=== PATIENT | male | born 1990 | race Caucasian/White ===

== ENCOUNTER 2018-06-12 16:35 | Emergency (ER) | payer BC ==
[2018-06-12] MEDS ORDERED: GUAIFENESIN/D-METHORPHAN (200-20 MG) SYRUP 10 ML PO ONE (17:31)
[2018-06-12] MEDS ORDERED: ALBUTEROL SULFATE 0.083% NEB 2.5 MG/3 ML AMPUL NEB ONE (17:31)
--- NOTE | 2018-06-12 17:31 | ER Document Report ---
ED Medical Screen (RME) - General Chief Complaint: Shortness Of Breath Stated Complaint: ABDOMIONAL PAIN Time Seen by Provider: 06/12/18 17:28 Mode of Arrival: Ambulatory Information source: Patient Notes: Patient is a 27-year-old male who presents to the ER today for 3 months of a dry cough and approximately 1 week of right chest pain with coughing and deep breathing. He admits to shortness of breath over the last couple of weeks as well. He denies any history of asthma or COPD. He denies any fevers chills, runny nose or sinus congestion. TRAVEL OUTSIDE OF THE [place] IN LAST 30 DAYS: No - Related Data Allergies/Adverse Reactions: No Known Allergies Allergy (Unverified 06/12/18 16:36) Past Medical History - General Information source: Patient - Social History Chew tobacco use (# tins/day): No Frequency of alcohol use: None Drug Abuse: None Renal/ Medical History: Denies: Hx Peritoneal Dialysis Review of Systems - Review of Systems Constitutional: See HPI Respiratory: See HPI Physical Exam - Vital signs Vitals: Temp Pulse Resp BP Pulse Ox 98.3 F 95 16 120/83 95 06/12/18 16:41 06/12/18 16:41 06/12/18 16:41 06/12/18 16:41 06/12/18 16:41 - Notes Notes: PHYSICAL EXAMINATION: GENERAL: Mildly ill-appearing, constantly coughing, otherwise in no acute distress. LUNGS: Mild expiratory wheezes, no rales or rhonchi. HEART: Regular rate and rhythm without murmurs Course - Vital Signs Vital signs: Temp Pulse Resp BP Pulse Ox 98.3 F 95 16 120/83 95 06/12/18 16:41 06/12/18 16:41 06/12/18 16:41 06/12/18 16:41 06/12/18 16:41
--- NOTE | 2018-06-12 18:20 | RADIOLOGY REPORT (SQ) ---
EXAM DESCRIPTION: CHEST 2 VIEWS COMPLETED DATE/TIME: 06/12/2018 5:37 pm REASON FOR STUDY: 3 months of cough, right-sided chest pain. COMPARISON: None. EXAM PARAMETERS: NUMBER OF VIEWS: two views TECHNIQUE: Digital Frontal and Lateral radiographic views of the chest acquired. RADIATION DOSE: NA LIMITATIONS: none FINDINGS: LUNGS AND PLEURA: No consolidation, pneumothorax or pleural effusion. MEDIASTINUM AND HILAR STRUCTURES: No masses or contour abnormalities. HEART AND VASCULAR STRUCTURES: Heart normal size. No evidence for failure. BONES: No acute findings. HARDWARE: None in the chest. IMPRESSION: NO ACUTE RADIOGRAPHIC FINDING IN THE CHEST. TECHNICAL DOCUMENTATION: JOB ID: [id number] [employer]- All Rights Reserved Reading location - IP/workstation name: [email or web address]
--- NOTE | 2018-06-12 18:30 | ER Document Report ---
ED Respiratory Problem - General Chief Complaint: Shortness Of Breath Stated Complaint: ABDOMIONAL PAIN Time Seen by Provider: 06/12/18 17:28 Primary Care Provider: [facility] [Provider Group] - Follow up as needed Mode of Arrival: Ambulatory Information source: Patient Notes: Patient is a 27-year-old male who presents to the ER today for 3 months of a dry cough and approximately 1 week of right chest pain with coughing and deep breathing. He admits to shortness of breath over the last couple of weeks as well. He denies any history of asthma or COPD. He denies any fevers chills, runny nose or sinus congestion. TRAVEL OUTSIDE OF THE [place] IN LAST 30 DAYS: No - Related Data Allergies/Adverse Reactions: No Known Allergies Allergy (Unverified 06/12/18 16:36) Past Medical History - General Information source: Patient - Social History Smoking Status: Current Every Day Smoker Chew tobacco use (# tins/day): No Frequency of alcohol use: None Drug Abuse: None Family History: Reviewed & Not Pertinent Patient has suicidal ideation: No Patient has homicidal ideation: No Renal/ Medical History: Denies: Hx Peritoneal Dialysis Review of Systems - Review of Systems Constitutional: See HPI EENT: See HPI Cardiovascular: No symptoms reported Respiratory: See HPI Gastrointestinal: No symptoms reported Genitourinary: No symptoms reported Male Genitourinary: No symptoms reported Musculoskeletal: No symptoms reported Skin: No symptoms reported Hematologic/Lymphatic: No symptoms reported Neurological/Psychological: No symptoms reported Physical Exam - Vital signs Vitals: Temp Pulse Resp BP Pulse Ox 98.3 F 95 16 120/83 95 06/12/18 16:41 06/12/18 16:41 06/12/18 16:41 06/12/18 16:41 06/12/18 16:41 - Notes Notes: PHYSICAL EXAMINATION: GENERAL: Uncomfortable appearing, but in no acute distress. HEAD: Atraumatic, normocephalic. EYES: Pupils equal round and reactive to light, extraocular movements intact, sclera anicteric, conjunctiva are normal. ENT: Airway patent, ear canals without erythema or foreign body, TMs pearly hernandez with good bony landmarks, nares patent, oropharynx clear without exudates. Moist mucous membranes. NECK: Normal range of motion, supple without lymphadenopathy LUNGS: Mild expiratory wheezes, no rales or rhonchi. HEART: Regular rate and rhythm without murmurs ABDOMEN: Soft, no tenderness. No guarding, no rebound BACK: no vertebral tenderness, normal ROM GI/: no CVA tenderness EXTREMITIES: Normal range of motion, no pitting edema. No cyanosis. NEUROLOGICAL: Cranial nerves grossly intact. Normal sensory/motor exams. PSYCH: Normal mood, normal affect. SKIN: Warm, Dry, normal turgor, no rashes or lesions noted Course - Re-evaluation Re-evalutation: 06/12/18 18:53 Chest x-ray negative for any acute pathology, will treat for bronchitis with prednisone taper, cough syrup and albuterol as needed for shortness of breath or wheezing, patient is to follow-up with his primary care provider, he is afebrile, I do not feel that antibiotic is warranted at this time. Patient is insistent on pain medication. - Vital Signs Vital signs: Temp Pulse Resp BP Pulse Ox 98.1 F 86 16 156/83 H 94 06/12/18 18:50 06/12/18 18:50 06/12/18 16:41 06/12/18 18:50 06/12/18 18:50 Discharge - Discharge Clinical Impression: Bronchitis Condition: Stable Disposition: HOME, SELF-CARE Instructions: Bronchitis ([facility]) Additional Instructions: Return immediately for any new or worsening symptoms. Follow up with primary care provider, call tomorrow to make followup appointment. Prescriptions: Albuterol Sulfate [Proair HFA Inhalation Aerosol 8.5 gm MDI] 2 puff IH Q4H PRN #1 mdi PRN Reason: D-Methorphan Hb/Prometh HCl [Promethazine-Dm Syrup] 120 ml PO Q8H PRN #120 ml PRN Reason: Prednisone 10 mg PO DAILY #1 tab.ds.pk Forms: Return to Work Referrals: [facility] [Provider Group] - Follow up as needed
[2018-06-12] MEDS ORDERED: HYDROCODONE/ACETAMINOPHEN 5-325 MG (6 TAB/ER DISP) PO PRN (18:42)
[2018-06-12 18:51] VITALS: BP 156/83
== END 2018-06-12 18:50 | disposition home or self-care (01) ==
LOC: ER 16:35
DX: J40 Bronchitis, not specified as acute or chronic (principal); R05 Cough; R07.1 Chest pain on breathing; R06.02 Shortness of breath; R06.2 Wheezing; F17.200 Nicotine dependence, unspecified, uncomplicated
CPT/HCPCS: 94640; 99285; 71046; J3490

== ENCOUNTER 2018-06-19 16:43 | Emergency (ER) | payer BC ==
[2018-06-19] MEDS ORDERED: NAPROXEN 250 MG TABLET PO ONE (16:58)
--- NOTE | 2018-06-19 17:03 | ER Document Report ---
ED Medical Screen (RME) - General Chief Complaint: Breathing Difficulty Stated Complaint: DIFFICULTY BREATHING Time Seen by Provider: 06/19/18 16:53 Notes: RAPID MEDICAL EVALUATION DISCLOSURE I have seen this patient as part of a Rapid Medical Evaluation and, if applicable, placed any initially appropriate orders. The patient will be seen and fully evaluated, including a full history and physical exam, by a provider (in Main ED or Fast Track) when a room becomes available. 27-year-old male here with several months of cough that was initially dry but has now become productive over the past few days and is now bringing up green sputum. He states that yesterday he "flopped down on the bed" and felt an immediate pop and since then has been having excruciating pain to his right lower chest. Pain is worse with breathing and pressing on the area. He smokes 1 pack of cigarettes daily. EXAM CTAB RRR Exquisite tenderness to palpation of the right lower and lateral chest wall No crepitus appreciated TRAVEL OUTSIDE OF THE [place] IN LAST 30 DAYS: No - Related Data Allergies/Adverse Reactions: No Known Allergies Allergy (Verified 06/19/18 16:44) Past Medical History Renal/ Medical History: Denies: Hx Peritoneal Dialysis Physical Exam - Vital signs Vitals: Temp Pulse Resp BP Pulse Ox 98.4 F 80 18 173/113 H 98 06/19/18 16:50 06/19/18 16:50 06/19/18 16:50 06/19/18 16:50 06/19/18 16:50 Course - Vital Signs Vital signs: Temp Pulse Resp BP Pulse Ox 98.4 F 80 18 173/113 H 98 06/19/18 16:50 06/19/18 16:50 06/19/18 16:50 06/19/18 16:50 06/19/18 16:50
--- NOTE | 2018-06-19 17:46 | RADIOLOGY REPORT (SQ) ---
EXAM DESCRIPTION: CHEST 2 VIEWS COMPLETED DATE/TIME: 06/19/2018 5:28 pm REASON FOR STUDY: R CP worse w breaths; ptx pna rib fx? COMPARISON: 06/12/2018 EXAM PARAMETERS: NUMBER OF VIEWS: two views TECHNIQUE: Digital Frontal and Lateral radiographic views of the chest acquired. RADIATION DOSE: NA LIMITATIONS: none FINDINGS: LUNGS AND PLEURA: No opacities, masses or pneumothorax. No pleural effusion. MEDIASTINUM AND HILAR STRUCTURES: No masses or contour abnormalities. HEART AND VASCULAR STRUCTURES: Heart normal size. No evidence for failure. BONES: No acute osseous finding. Levocurvature of the thoracic spine, likely positional as this was not present on the recent prior. HARDWARE: None in the chest. OTHER: No other significant finding. IMPRESSION: NO ACUTE RADIOGRAPHIC FINDING IN THE CHEST. TECHNICAL DOCUMENTATION: JOB ID: [id number] [employer]- All Rights Reserved Reading location - IP/workstation name: [email or web address]
[2018-06-19] MEDS ORDERED: LIDOCAINE 5% (700 MG) TRANSDERMAL ADH..PATCH TP ONE (18:18)
[2018-06-19] MEDS ORDERED: HYDROCODONE/ACETAMINOPHEN 5-325 MG (6 TAB/ER DISP) PO PRN (18:18)
--- NOTE | 2018-06-19 18:18 | ER Document Report ---
ED General - General TRAVEL OUTSIDE OF THE [place] IN LAST 30 DAYS: No - General Chief Complaint: Breathing Difficulty Stated Complaint: DIFFICULTY BREATHING Time Seen by Provider: 06/19/18 16:53 Notes: 27-year-old male with several months of cough that was initially dry but has now become productive over the past few days and is now bringing up green sputum. He states that yesterday he "flopped down on the bed" and felt an immediate pop and since then has been having excruciating pain to his right lower chest. Pain is worse with breathing and pressing on the area. He smokes 1 pack of cigarettes daily. He denies fevers or chills, shortness of breath or cardiac type chest pain, complains of nausea secondary to pain, denies abdominal pain, denies urinary symptoms, denies flank pain. (KEENAN KLINE) - Related Data Allergies/Adverse Reactions: No Known Allergies Allergy (Verified 06/19/18 16:44) Past Medical History - Social History Smoking Status: Current Every Day Smoker Family History: Reviewed & Not Pertinent Patient has suicidal ideation: No Patient has homicidal ideation: No Renal/ Medical History: Denies: Hx Peritoneal Dialysis Review of Systems - Review of Systems Constitutional: See HPI EENT: No symptoms reported Cardiovascular: See HPI Respiratory: See HPI Gastrointestinal: See HPI Genitourinary: See HPI Male Genitourinary: No symptoms reported Musculoskeletal: No symptoms reported Skin: No symptoms reported Hematologic/Lymphatic: No symptoms reported Neurological/Psychological: No symptoms reported Physical Exam - Vital signs Vitals: Temp Pulse Resp BP Pulse Ox 98.4 F 80 18 173/113 H 98 06/19/18 16:50 06/19/18 16:50 06/19/18 16:50 06/19/18 16:50 06/19/18 16:50 - Notes Notes: PHYSICAL EXAMINATION: Reviewed vital signs and charting by RN GENERAL: Alert, interacts well. No acute distress. HEAD: Normocephalic, atraumatic. EYES: Pupils equal, round, and reactive to light. Extraocular movements intact. ENT: Oral mucosa moist, tongue midline. NECK: Full range of motion. Supple. Trachea midline. LUNGS: Clear to auscultation bilaterally, no wheezes, rales, or rhonchi. No respiratory distress. HEART: Regular rate and rhythm. No murmur ABDOMEN: soft, non-tender. Non-distended. Bowel sounds present in all 4 quadrants. no McBurney's point tenderness, no Cruz sign. EXTREMITIES: Moves all 4 extremities spontaneously. No edema, No cyanosis. MSK: Acute tenderness to palpation left lower anterior ribs that radiates around his back, pain with movement NEUROLOGICAL: Alert and oriented x3. Normal speech. PSYCH: Normal affect, normal mood. SKIN: Warm, dry, normal turgor. No rashes or lesions noted. (KEENAN KLINE) Course - Re-evaluation Re-evalutation: 06/19/18 18:15 Patient presents after 1 week. Initially diagnosed with bronchitis, patient with acute inciting injury yesterday. Chest x-ray negative for pneumothorax, no cardiomegaly, cardiac silhouette normal. I do not suspect aortic dissection. Most likely represents costochondritis. 06/19/18 18:16 (KEENAN KLINE) 06/19/18 21:02 Personally evaluated this patient. She has a small uterine prolapse with no prolapse past her vaginal canal. Her tissue is not excoriated and there is no active bleeding. Patient did have some tenderness with palpation of the uterine prolapse. I agree with plan of care and close gynecologic follow-up (PRABHJOT CORTEZ) - Vital Signs Vital signs: Temp Pulse Resp BP Pulse Ox 97.8 F 74 20 161/103 H 99 06/19/18 18:15 06/19/18 18:15 06/19/18 18:15 06/19/18 18:15 06/19/18 18:15 Discharge - Discharge Clinical Impression: Acute costochondritis Condition: Good Disposition: HOME, SELF-CARE Additional Instructions: You were seen in the emergency department this evening for chest wall pain. The way you landed on your bed last night you most likely dislocated and immediately relocated a rib. This is called costochondritis. Your chest x-ray was normal so I do not think you have a pneumothorax or a popped lung. We have given you a lidocaine patch. You can also purchase Aspercreme [id number] that he can put over the painful area. Take Tylenol 1000 mill grams every 6 hours and/or Motrin 600 mg every 6 hours for pain and inflammation. Also I have given you a very short round of pain medication to help bridge you over the next couple of days. I understand this is a very painful condition. He develop severe shortness of breath, severe central chest pain, cannot breathe, pass out, or have any other concerning symptoms please merely return to the emergency department. Prescriptions: RX: D-Methorphan Hb/Prometh HCl [Promethazine-Dm Syrup] 120 ml PO ASDIR PRN #1 bottle PRN Reason:
[2018-06-19 18:19] VITALS: BP 161/103
== END 2018-06-19 18:36 | disposition home or self-care (01) ==
LOC: ER 16:43
DX: M94.0 Chondrocostal junction syndrome [Tietze] (principal); R05 Cough; F17.210 Nicotine dependence, cigarettes, uncomplicated
CPT/HCPCS: 71046; 99284